=== PATIENT | male | born 1970 | race Caucasian/White ===

== ENCOUNTER → 2019-02-10 | Outpatient (CLI) | payer BC ==
[~2019-02-10] MED LIST: AC325T; ACET-1697 PO; CODE-54 PO; ENOX100D9; WRF5T PO
[2019-02-10 14:25] VITALS: BP 127/83
--- NOTE | 2019-02-10 14:25 | Cardiology Stress Test Report ---
Stress Test Report Date of Procedure/Referring: Date of Procedure: Feb 10, 2019 PCP Bob Pascal MD Admitting Physician Bob Pascal MD Baseline Heart Rate: 71 Baseline Blood Pressure: Blood Pressure Systolic: 127 Blood Pressure Diastolic: 83 Baseline EKG: Baseline EKG: normal sinus rhythm Summary/Conclusion: Summary: In summary, the patient started exercising with a baseline heart rate, blood pressure and EKG mentioned above Patient was able to exercise for a total of 10 minutes on Jose protocol, 11.7 METs Maximum heart rate 165 Maximum blood pressure 208/77 Stress EKG Minimal nondiagnostic changes Recovery EKG Return to baseline Conclusion: 1. Good exercise tolerance for a total of 10 minutes on Jose protocol, 11.7 METs, achieving 96 percent of maximum expected heart rate 2. Minimal nondiagnostic EKG changes with exercise returned to baseline during recovery 3. No arrhythmia was noted ROSHAN DOTY MD Feb 10, 2019 14:25
== END ==
LOC: CARD 07:14
PROVIDERS: ATTEND Family Medicine
DX: R07.89 Other chest pain (principal)
CPT/HCPCS: 93017

== ENCOUNTER 2019-03-01 10:42 | Outpatient (CLI) | payer BC ==
[~2019-03-01] VITALS: Ht 175 cm; Wt 113.0 kg
[2019-03-01] MEDS ORDERED: WARF-48 PO (13:26)
== END 2019-03-01 13:45 | disposition home or self-care (01) ==
LOC: PREOP 10:42
PROVIDERS: ATTEND Surgery
DX: Z01.818 Encounter for other preprocedural examination (principal)

== ENCOUNTER 2019-03-03 07:04 | Day surgery (SDC) | payer BC ==
[~2019-03-03] VITALS: Ht 175 cm; Wt 113.0 kg
[2019-03-03] VITALS (10 sets, daily range): BP systolic 108–145; BP diastolic 70–89
[~2019-03-03 07:04] MED LIST changes: +WARF-48 PO
[2019-03-03] MEDS ORDERED: LACTATED RINGERS 1,000 ML IV PRN (07:19)
[2019-03-03] MEDS ORDERED: BUP/EPI 0.25% 1:200,000 (MARCAINE) 10 ML VIAL IJ ONE (07:23)
[2019-03-03] MEDS ORDERED: BUP/EPI 0.5% 1:200,000 (SENSORCAINE) 30 ML VIAL ONE (07:26)
[2019-03-03] MEDS ORDERED: IOPAMIDOL 61% 30 ML (ISOVUE 300) VIAL IV ONE (07:26)
[2019-03-03] MEDS ORDERED: CATHETER FLUSH 10 ML SYR IV PRN (07:30)
[2019-03-03] MEDS ORDERED: ceFAZolin 2 GM IV Premixed 50 ML IV ONE (07:30)
[2019-03-03 07:51] LABS: BASOPHILS % (AUTO) 1 % (0-10); EOSINOPHILS # (AUTO) 0.2 10^3/uL (0.0-0.3); EOSINOPHILS % (AUTO) 3 % (0-10); HEMATOCRIT 44 % (40-54); HEMOGLOBIN 14.8 G/DL (13.3-17.7); LYMPHOCYTES # (AUTO) 1.7 X 10^3 (1.0-4.0); LYMPHOCYTES % (AUTO) 30 % (12-44); MEAN CORPUSCULAR HEMOGLOBIN 30 PG (25-34); MEAN CORPUSCULAR HGB CONC 34 G/DL (32-36); MEAN CORPUSCULAR VOLUME 89 FL (80-99); MEAN PLATELET VOLUME 9.6 FL (7.4-10.4); MONOCYTES # (AUTO) 0.5 X 10^3 (0.0-1.0); MONOCYTES % (AUTO) 10 % (0-12); NEUTROPHILS # (AUTO) 3.1 X 10^3 (1.8-7.8); NEUTROPHILS % (AUTO) 56 % (42-75); PLATELET COUNT 178 10^3/uL (130-400); RED CELL DISTRIBUTION WIDTH 13.3 % (10.0-14.5); WHITE BLOOD COUNT 5.5 10^3/uL (4.3-11.0)
[2019-03-03 08:07] LABS: INR 1.1 (0.8-1.4); PROTHROMBIN TIME PATIENT 14.2 SEC (12.2-14.7)
[2019-03-03] MEDS ORDERED: VASOPRESSIN INJECTION 20 UNIT/ML VIAL ONE (08:14)
--- NOTE | 2019-03-03 08:17 | Progress Note-Pre Operative ---
Pre-Operative Progress Note H&P Reviewed The H&P was reviewed, patient examined and no changes noted. Time Seen by Provider: 08:09 Date H&P Reviewed: Mar 03, 2019 Time H&P Reviewed: 08:10 Pre-Operative Diagnosis: Cholelithiasis/Cholecystitis XIN ORTIZ DO Mar 03, 2019 08:17
[2019-03-03] MEDS ORDERED: fentaNYL INJECTION 100 MCG/2 ML AMP ONE ×2 (09:04→09:45)
[2019-03-03] MEDS ORDERED: proPOfol 200 MG/20 ML (DIPRIVAN) VIAL IV ONE (09:04)
[2019-03-03] MEDS ORDERED: LIDOCAINE PF 2% 5 ML (XYLOCAINE) VIAL ONE (09:04)
[2019-03-03] MEDS ORDERED: MIDAZOLAM 2 MG/2 ML (VERSED) VIAL ONE (09:04)
[2019-03-03] MEDS ORDERED: ONDANSETRON 4 MG/2 ML (SDV) Z0FRAN ONE (09:26)
[2019-03-03] MEDS ORDERED: DEXAMETHASONE 10 MG/ML (DECADRON) 1 ML VIAL ONE (09:26)
[2019-03-03] MEDS ORDERED: ROCURONIUM 10 MG/ML 5 ML SYRINGE IV ONE (10:11)
[2019-03-03] MEDS ORDERED: SEVOFLURANE (ULTANE) 15 ML INHAL SOLN ONE (10:13)
[2019-03-03] MEDS ORDERED: ONDANSETRON 4 MG/2 ML (SDV) Z0FRAN IVP PRN (10:30)
[2019-03-03] MEDS ORDERED: HYDROmorphone 2 MG/ML VIAL (DILAUDID) IV ONE (10:30)
[2019-03-03] MEDS ORDERED: fentaNYL INJECTION 100 MCG/2 ML AMP IVP ONE (10:30)
--- NOTE | 2019-03-03 10:38 | Progress Note-Post Operative ---
Post-Operative Progess Note Surgeon (s)/Elevator Examiner (s) Surgeon XIN ORTIZ DO Elevator Examiner: Avinash Pre-Operative Diagnosis Cholelithiasis/Cholecystitis Post-Operative Diagnosis same Procedure & Operative Findings Date of Procedure 03/03/19 Procedure Performed/Findings Lap shanique with IOC Anesthesia Type GET Estimated Blood Loss Estimated blood loss (mL): scant Specimens/Packing Specimens Removed GB and contents XIN ORTIZ DO Mar 03, 2019 10:38
[2019-03-03] MEDS ORDERED: ACHD5005 PO (10:39)
--- NOTE | 2019-03-03 10:40 | Discharge Inst-Surgical ---
Discharge Inst-Surgical Depart Medication/Instructions New, Converted or Re-Newed RX: RX Given to Pt/Family Patient Instructions Follow up Appt: Make appointment for 1 week. [phone] Instructions: No lifting greater than 20 pounds. No strenuous activity. May shower in 24 hours, no tub bath or soaking. Use incentive spirometer at home as directed. No Smoking Skin/Wound Care: May remove bandages in am. You need to leave the Dermabond on incision it will fall off on it's own. Symptoms to Report: Appetite Changes, Extremity Discoloration, Numbness/Tingling, Swelling Increased, Bleeding Excessive, Eyesight Changes, Pain Increased, Urine Color Change, Constipation(Persistent), Fever over 101 degree F, Pain/Pressure in chest, Urinating Difficulty, Cough Up/Vomit Blood, Heart Beat Irreg/Pounding, Pain/Pressure in jaw, Cramps in feet or legs, Lightheadedness, Pain/Pressure in shoulder, Diarrhea(Persistent), Memory Changes Suddenly, Questions/Concerns, Weight gain consecutive days, Dizziness/Fainting, Nausea/Vomiting, Shortness of Breath, Weight gain over 2 pounds If questions or concerns contact your physician Or seek help at emergency department. Activity Activity as Tolerated: Yes Driving Instructions: No Driving/Refer to Diet Discharge Diet: Avoid Fatty Foods, Low Fat/Low Cholesterol Diet After 24 Hours: Clear Liquid if Nauseous If Any Problems/Questions/Issu: Contact Your Physician, Go to Emergency Room Skin/Wound Care Infection Signs and Symptoms: Increased Redness, Foul Odor of Wound, Increased Drainage, Skin Itchy or Has a Rash, Increased Swelling, Temperature Above 101 F Wound Care Comment: heating pad to shoulder or neck tonight for pain Bathing Instructions: Shower Stitches/[place]/Dermabond Dis: Dermabond Ice Pack: Ice On and Off Site (as needed for pain at incision sites) XIN ORTIZ DO Mar 03, 2019 10:40
--- NOTE | 2019-03-03 11:44 | Anesthesia-General Post-Op ---
General Patient Condition Mental Status/LOC: Same as Preop Cardiovascular: Satisfactory Nausea/Vomiting: Absent Respiratory: Satisfactory Pain: Controlled Complications: Absent Post Op Complications Complications None Follow Up Care/Instructions Patient Instructions None needed. Anesthesia/Patient Condition Patient Condition Patient is doing well, no complaints, stable vital signs, no apparent adverse anesthesia problems. No complications reported per nursing. ARMEN ZAPATA CRNA Mar 03, 2019 11:44
[2019-03-03] MEDS ORDERED: HYDROcodone/APAP 5 MG/325 MG (LORTAB) TAB ONE (12:09)
[2019-03-03] MEDS ORDERED: HYDROcodone/APAP 5 MG/325 MG (LORTAB) TAB PO ONE (12:15)
--- NOTE | 2019-03-03 14:48 | Diagnostic Imaging Report ---
Fluoroscopy. Indications: Abdominal pain. Fluoroscopic assistance was provided for Dr. Gómez. 13.2 seconds of fluoroscopy time was utilized. 73 spot films of the right upper quadrant were obtained from the OR. There are laparoscopic devices in place. The common bile duct has been opacified via a cystic duct catheter. The common bile duct does not seem to be significantly dilated and there is contrast extending into the small bowel. However much of the common bile duct is unopacified and consequently difficult to evaluate for choledocholithiasis. Impression: Fluoroscopic assistance was provided for Dr. Gómez. Dictated by: Dictated on workstation # [id number]
--- NOTE | 2019-03-03 14:59 | OPERATIVE REPORT ---
DATE OF SERVICE: 03/03/2019 PREOPERATIVE DIAGNOSES: Cholelithiasis, cholecystitis. POSTOPERATIVE DIAGNOSES: Cholelithiasis, cholecystitis. PROCEDURE: Laparoscopic cholecystectomy, intraoperative cholangiogram. SURGEON: Mick Gómez DO BELL RINGER: Wilber Da Silva DO ANESTHESIA: General endotracheal tube. SPECIMEN: Gallbladder and contents. BLOOD LOSS: Scant. FLUIDS: Per anesthesia. POSTOPERATIVE CONDITION: Stable. INDICATION FOR PROCEDURE: The patient is a 48-year-old male, who has been having right upper quadrant pain associated with fried and fatty foods and had an ultrasound, which showed stones in the gallbladder. FINDINGS: The patient had some mild adhesions to the gallbladder, it is usually indicative of previous gallbladder attacks. PROCEDURE NOTE: After informed consent was obtained, the patient was brought to the operating room, placed on the operating table in supine position, sterilely prepped and draped in normal fashion. Local lidocaine was used to infiltrate the skin above the umbilicus. I made the incision with #11 blade, carried down through the skin into subcutaneous tissue, then deepened down to subcutaneous tissue with Bovie electrocautery down to the fascia. Fascia incised with Bovie electrocautery, bluntly entered the abdomen, swept a finger around, placed 0 Vicryl [id number] suture and placed an 11 mm trocar port under direct visualization. Created pneumoperitoneum and then placed 3 more ports in normal fashion using local lidocaine, 11 blade for stab incision and VersaStep system, all done under direct visualization, one in subxiphoid and 2 in the right upper quadrant. The patient then placed in reverse Trendelenburg and rotated left, able to visualize the gallbladder, grasped at the fundus and taken in superior direction, then grasped down Didi's pouch, started dissecting out the cystic duct, able to further delineate the cystic duct and the cystic artery and then placed a clip distally on the cystic duct and then one distally and one proximally on the cystic artery. Cut the cystic duct long-term through Metzenbaum scissors. Placed a cholangiogram catheter, shot a cholangiogram. Good spillage of dye down the common bile duct into the small intestine as well as up into common hepatic and right and left hepatics. Removed the cholangiogram catheter, placed 2 clips proximally on the cystic duct and cut the cystic duct and cystic artery with Metzenbaum scissors, then removed the gallbladder from bed of liver with L-hook cautery, which was completely removed, placed a bag in the abdomen, placed the gallbladder in the bag and then removed this through the supraumbilical incision. Placed the port back in the abdomen, copiously irrigated with normal saline, made sure hemostasis was obtained. Because of the patient's bleeding history and anticoagulation use, there was no bleeding at the end of the case. Copiously irrigated with normal saline, suctioned this out, placed the patient back supine. Suctioned out the pneumoperitoneum as well as allowed it to escape and removed all ports under direct visualization, closed supraumbilical incision, closing the fascia with 0 Vicryl suture previously placed. Copiously irrigated all incisions with normal saline, closing the three small 5 mm incisions with a single interrupted 4-0 undyed Monocryl subcuticular stitch. Closed the supraumbilical incision with 3 interrupted 4-0 undyed Monocryl subcuticular stitches. Area was cleaned and dried and Dermabond was placed as well as then bandaged. The patient tolerated the procedure well. Sponge, instrument and needle count were correct at the end of the case. Dr. Da Silva assisted in this case helping to make incisions, close incisions as well as identify anatomy and hold anatomy out of the way. Job ID: [id number] DocumentID: [id number] Dictated Date: 03/03/2019 10:55:12 Salesperson Wigs Date: 03/03/2019 14:58:49 Dictated By: MICK GÓMEZ DO
== END 2019-03-03 12:45 | disposition home or self-care (01) ==
LOC: SDC 07:04
PROVIDERS: ATTEND Surgery
DX: K80.10 Calculus of gallbladder with chronic cholecystitis without obstruction (principal); Z11.2 Encounter for screening for other bacterial diseases; E78.5 Hyperlipidemia, unspecified; R79.1 Abnormal coagulation profile; Z86.718 Personal history of other venous thrombosis and embolism; Z86.711 Personal history of pulmonary embolism; Z79.01 Long term (current) use of anticoagulants; Z87.891 Personal history of nicotine dependence; E66.9 Obesity, unspecified; Z68.36 Body mass index [BMI] 36.0-36.9, adult
CPT/HCPCS: 36415; 85025; 85610; 87081

== ENCOUNTER 2020-04-10 05:35 | Outpatient (RCR) | payer BC ==
[~2020-04-10] VITALS: Ht 175.3 cm; Wt 117.3 kg
[~2020-04-10 05:35] MED LIST changes: +ACHD5005 PO
--- NOTE | 2020-04-11 08:10 | NUR ---
Notified patient of COVID positive test.
== END 2020-04-10 09:16 | disposition home or self-care (01) ==
LOC: PREOP 05:35
PROVIDERS: ATTEND Surgery
DX: Z01.812 Encounter for preprocedural laboratory examination (principal); Z12.11 Encounter for screening for malignant neoplasm of colon; U07.1 COVID-19
CPT/HCPCS: 87635